=== PATIENT | female | born 1985 | race Two or more races ===

== ENCOUNTER 2017-11-18 21:23 | Emergency (ER) | payer OTHER ==
[~2017-11-18] VITALS: Ht 162.6 cm; Wt 86.2 kg
[2017-11-18 21:44] VITALS: BP 135/71
[2017-11-18 22:51] LABS: APPEARANCE,URINE SL CLOUDY (CLEAR); BILIRUBIN,URINE NEGATIVE (NEGATIVE); BLOOD, URINE NEGATIVE Ery/uL (NEGATIVE); COLOR,URINE YELLOW (YELLOW); KETONES,URINE NEGATIVE (NEGATIVE); LEUKOCYTE ESTERASE ,URINE NEGATIVE (NEGATIVE); NITRITE, URINE NEGATIVE (NEGATIVE); PROTEIN,URINE NEGATIVE (NEGATIVE); UGLUCOSE NEGATIVE (NEGATIVE); UROBILINOGEN,URINE 0.2 EU/dL (0.2)
[2017-11-18] MEDS ORDERED: FLUCONAZOLE (100 MG) 100 MG TABLET ONE (23:21)
[2017-11-18] MEDS ORDERED: FLUCONAZOLE (100 MG) 100 MG TABLET PO ONE (23:30)
--- NOTE | 2017-11-19 00:14 | NUR ---
ASSUMED D/C CARE ONLY AT THIS TIME ON BEHALF OF PRIMARY NURSE JO ANN. Patient discharged to home in stable condition. Written and verbal after care instructions given. Patient verbalizes understanding of instruction. Ambulatory with a steady gait
== END 2017-11-19 00:17 | disposition home or self-care (01) ==
LOC: ER 21:28
DX: N76.0 Acute vaginitis (principal); B96.89 Other specified bacterial agents as the cause of diseases classified elsewhere; R10.2 Pelvic and perineal pain; Z90.89 Acquired absence of other organs
CPT/HCPCS: 76856; 81001; 84703; 99285; A4606; Z7610; 81000-TC

== ENCOUNTER 2018-05-09 12:24 | Emergency (ER) | payer OTHER ==
[~2018-05-09] VITALS: Ht 162.6 cm; Wt 77.1 kg
[2018-05-09 12:28] VITALS: BP 115/65
== END 2018-05-09 13:04 | disposition home or self-care (01) ==
LOC: ER 12:27
DX: K13.0 Diseases of lips (principal)

== ENCOUNTER 2021-03-20 11:02 | Emergency (ER) | payer MEDICAID, OTHER ==
[~2021-03-20] VITALS: Ht 162.6 cm; Wt 72.6 kg
--- NOTE | 2021-03-20 11:30 | NUR ---
PT CAME TO ER C/O DYSURIA AND VAGINAL ITCHING X 5 DAYS. ADMITS LOWER BACK PAIN AND LOWER ABDOMINAL PAIN SINCE LAST NIGHT. DENIES FEVER, CHILLS, NAUSEA, VOMITING, VAGINAL DISCHARGE. A&OX4, AMBULATORY, BREATHING EVEN AND UNLABORED, PULSES 2+ BILATERALLY, -COSTOVERTEBRAL ANGLE TENDERNESS.
[2021-03-20 11:53] LABS: BILIRUBIN,URINE Negative (NEGATIVE); COLOR,URINE YELLOW (YELLOW); LEUKOCYTE ESTERASE ,URINE Small (NEGATIVE); NITRITE, URINE Negative (NEGATIVE); PROTEIN,URINE Negative (NEGATIVE); UGLUCOSE Negative (NEGATIVE); UROBILINOGEN,URINE 0.2 EU/dL (0.2)
[2021-03-20] MEDS ORDERED: CEPH500C2 PO (12:16)
[2021-03-20] MEDS ORDERED: FLUCONAZOLE (100 MG) 100 MG TABLET ONE (12:22)
--- NOTE | 2021-03-20 12:29 | NUR ---
Patient discharged to home in stable condition. Written and verbal after care instructions given. Patient verbalizes understanding of instruction.
[2021-03-20 12:30] VITALS: BP 123/71
[2021-03-20] MEDS ORDERED: FLUCONAZOLE (100 MG) 100 MG TABLET PO ONE (12:30)
[2021-03-20 13:02] LABS: BACTERIA,URINE Few /HPF (None Seen); RBC,URINE 0-2 /HPF (0-2); SQUAMOUS EPITHELIAL CELL,UR Few /HPF (None Seen)
== END 2021-03-20 12:27 | disposition home or self-care (01) ==
LOC: ER 11:08
DX: N30.00 Acute cystitis without hematuria (principal); R30.0 Dysuria; R35.0 Frequency of micturition; L29.9 Pruritus, unspecified
CPT/HCPCS: 81001; 87086-TC